=== PATIENT | female | born 1975 | race Caucasian/White ===

== ENCOUNTER 2022-04-12 21:52 | Emergency (ER) | payer OTHER, SELFPAY ==
[2022-04-12 22:06] VITALS: BP 180/99; PULSE 83; RESP 18; TEMP 36.6; O2SAT 98; BMI 38.0
[2022-04-12 22:46] LABS: MANUAL DIFF FLAG NO
[2022-04-12 22:47] LABS: Basophils Percent Auto 0.3 % (0-2); Eosinophils Absolute Auto 0.2 X10*3/uL (0.0-0.4); Eosinophils Percent Auto 2.1 % (0-4); Hematocrit 37.8 % (37.0-47.0); Hemoglobin 12.9 g/dl (12.0-16.0); Imm Gran Abs Auto 0.05 X10*3/uL (0.00-0.03); Imm Gran Pct Auto 0.5 % (0.0-0.4); Lymphocytes Percent Auto 29.7 % (20-40); Mean Corpuscular HGB Conc 34.1 g/dl (31.0-35.0); Mean Corpuscular Hemoglobin 30.5 pg (27.0-33.0); Mean Corpuscular Volume 89.4 fL (80.0-98.0); Mean Platelet Volume 8.8 fL (9.4-12.3); Monocytes Absolute Auto 0.5 X10*3/uL (0.1-1.2); Neutrophils Absolute Auto 6.2 x10*3/uL (2.0-8.3); Neutrophils Percent Auto 62.4 % (45-73); Platelet Count 219 X10*3/uL (160-400); Red Blood Count 4.23 X10*6/uL (4.20-5.50); Red Cell Distribution Width 12.1 % (11.0-16.0)
[2022-04-12 23:11] LABS: Alanine Aminotransferase 34 U/L (0-31); Albumin Level 3.9 g/dL (3.5-5.0); Alkaline Phosphatase 63 U/L (39-117); Anion Gap 17 (12-20); Aspartate Amino Transferase 26 U/L (5-31); Bilirubin Total 0.5 mg/dL (0.0-1.0); Blood Urea Nitrogen 9 mg/dL (9-16); Calcium 8.7 mg/dL (8.4-10.2); Carbon Dioxide 21 mmol/L (22-29); Chloride 105 mmol/L (96-108); Creatinine Clr Calc Pharmacy 128.9; Estimated Glomerular Filt Rate > 60; Glucose Random 142 mg/dL (60-115); Sodium 139 mmol/L (135-145); Total Protein 7.2 g/dL (6.5-8.0)
--- NOTE | 2022-04-13 00:40 | ECG_ITS ---
Test Reason : irrigular heart beat Blood Pressure : / mmHG Vent. Rate : 113 BPM Atrial Rate : 000 BPM P-R Int : 000 ms QRS Dur : 088 ms QT Int : 382 ms P-R-T Axes : 000 008 011 degrees QTc Int : 523 ms Atrial fibrillation with rapid ventricular response Prolonged QT Abnormal ECG No previous ECGs available Referred By: Jameel Moran Electronically Signed By:HARPAL LYMAN
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
[2022-04-13 00:51] LABS: Appearance Urine HAZY; Color Urine YELLOW; Glucose Urine UA Negative (NEG); Leukocyte Esterase Urine Negative (Negative); Nitrite Urine Negative (NEG); Specific Gravity - Urine >= 1.030 (1.005-1.025); Urine Blood Trace (NEG); Urine Ketones Negative (NEG); Urine Protein Negative (NEG-TRACE)
[2022-04-13 00:57] LABS: Bacteria Urine 2+ /LPF; Calcium Oxalate Crystals Urine 2+ /LPF; Mucus Urine 2+ /LPF; Squamous Epithelial Cell Urine 1+ /LPF
[2022-04-13] MEDS: Ibuprofen 600 MG TABLET PO (00:57)
[2022-04-13] MEDS: Cyclobenzaprine HCl 10 MG TABLET PO (00:58)
[2022-04-13 01:49] VITALS: BP 153/100; PULSE 99; RESP 16; TEMP 36.6; O2SAT 98
== END 2022-04-13 02:36 | disposition home or self-care (01) ==
PROVIDERS: Emergency Provider Emergency Medicine
DX: I48.91 Unspecified atrial fibrillation (principal); M54.50 Low back pain, unspecified; Z79.899 Other long term (current) drug therapy
CPT/HCPCS: 36415; 80053; 81001; 85025; 93005; 99283; 99284

== ENCOUNTER 2022-05-19 09:00 | Outpatient (RCR) | payer OTHER, SELFPAY ==
[2022-04-22 07:13] VITALS: BP 118/74; PULSE 83; O2SAT 97
== END 2022-06-28 12:36 | disposition home or self-care (01) ==
LOC: HO.PTWFD 09:00
PROVIDERS: Visit Provider Family Medicine
DX: M54.9 Dorsalgia, unspecified (principal)
CPT/HCPCS: 97110; 97140; 97161; 97535

== ENCOUNTER → 2022-07-28 14:53 | Outpatient (BNVA) | payer OTHER, SELFPAY | PROVIDERS: Visit Provider Nurse Practitioner Family | DX: I48.91 Unspecified atrial fibrillation (principal); G47.10 Hypersomnia, unspecified | CPT/HCPCS: 93005 ==

== ENCOUNTER → 2022-08-12 14:49 | Outpatient (REF) | payer OTHER, SELFPAY | LOC: HO.SL 14:49 | PROVIDERS: Visit Provider Nurse Practitioner Family | DX: G47.33 Obstructive sleep apnea (adult) (pediatric) (principal); G47.10 Hypersomnia, unspecified; I48.91 Unspecified atrial fibrillation | CPT/HCPCS: 95806 ==

== ENCOUNTER → 2022-08-25 13:56 | Outpatient (REF) | payer OTHER, SELFPAY ==
--- NOTE | 2022-08-25 14:01 | HM_ITS ---
* Total monitoring time about 3 days. * Underlying rhythm is sinus. * About 0.3% the time, rhythm is atrial fibrillation. * Atrial fibrillation with rapid ventricular rates noted as much as 159/Min. * Longest episode 3 minutes 36 seconds. * No significant pauses or AV blocks. * Rare PVCs. * No patient marker or diary. MTDD
--- NOTE | 2022-08-25 14:01 | CA_ITS ---
Transthoracic Echocardiogram Patient (Last, First, Middle): Kasandra Wesley A Gender: Female Date of : 1975 Age: 46 Procedure Date: 08/25/2022 Procedure Type: Transthoracic Echocardiogram Location: OP Height: 167.64 cm Weight: 117.94 kg BSA: 2.24 m2 Heart Rate: 77 bpm BP: 130 / 80 mmHg Flight Engineer Instructor: GLADIS Delgado MD: Ignacia Ramon [employer] Crm Developer: Anup Gunderson MD Symptoms: I48.91 - Unspecified atrial fibrillation Study Quality: Poor/Contrast ECG Rhythm: Sinus Conclusions: - 1. Technically limited study despite use of contrast agent 2. Normal LV systolic function with pseudonormal filling pattern 3. Normal cardiac valvular Dopplers 4. Normal RV systolic pressure Findings Procedure Information Contrast agent, definity, is being given per protocol without apparent complications. Left Ventricle Normal left ventricular size, thickness, and systolic function. The visually estimated ejection fraction is between 60-65%. Spectral Doppler is indicative of a pseudonormal filling pattern. Right Ventricle There is normal right ventricular systolic function. Atria The left atrium is likely dilated. Interatrial shunt cannot be excluded. The right atrium was not well visualized. Aortic Valve The aortic valve structure and function is likely normal. There is no aortic valve stenosis. There is no aortic valve regurgitation. Mitral Valve Likely normal mitral valve structure and function. There is no mitral valve regurgitation. There is no mitral valve stenosis. Pulmonic Valve The pulmonic valve was not well visualized. Tricuspid Valve The tricuspid valve was not well visualized. There is trace tricuspid valve regurgitation. The right ventricular systolic pressure is normal. The right ventricular systolic pressure is 20 mmHg. Normal right atrial pressure. There is no evidence of pulmonary hypertension. Great Vessels All visible segments of the aorta are normal in size. The pulmonary artery was not well visualized. Venous The inferior vena cava is normal in size and collapses greater than 50% with inspiration. Pericardium/Pleural The pericardium was not well visualized. Prior Study Comparison No prior study available for comparison. Measurements 2D Linear Measurements IVSd: 0.90 0.6-0.9/0.6-1.0 cm LVIDd: 4.98 3.9-5.3/4.2-5.9 cm LVIDd Index: 2.22 2.4-3.2/2.2-3.1 cm/m2 LVIDs: 2.95 2.0-3.6 cm LVPWd: 0.92 0.7-1.1 cm LA Diam: 4.30 2.7-3.8/3.0-4.0 cm LAIDs Index: 1.92 1.5-2.3 cm/m2 LV Mass: 197.55 67-162/88-224 g LV Mass Index: 88.19 43-95/49-115 g/m2 LVOT Diam: 2.00 3.0+(-)1.3 cm 2D Systolic Function EF 4C: 64.70 >55% EF 2C: 60.20 >55% EF BiP: 62.90 >55% Mitral Valve MV Pk E: 0.98 MV PK A: 0.88 MV Decel Time: 217.00 E/A: 1.10 E'Lateral: 10.90 E'Medial: 8.16 E/E' Med: 12.00 E/E' Lat: 9.00 PHT: 64.00 MVA PHT: 3.44 Decel [place]: 4.50 Aortic Valve AoV Pk Rajiv: 1.85 AoV Mn Rajiv: 1.33 AoV VTI: 0.41 AoV Pk Grad: 14.00 Aov Mn Grad: 8.00 BETH Cont.VTI: 1.97 LVOT LVOT Pk Rajiv: 1.07 LVOT Mn Rajiv: 0.81 LVOT VTI: 0.26 LVOT Pk Grad: 5.00 LVOT Mn Grad: 3.00 LVOT Diam: 2.00 LVOT Area: 3.14 Diastolic Function MV Pk E: 0.98 MV Pk A: 0.88 E/A: 1.10 E'Medial: 8.16 E/E' Med: 12.00 E' Laterial: 10.90 E/E' Lat: 9.00 Right Ventricle TAPSE (mm): 30.50 TVS' Rajiv: 11.40 Tricuspid Valve TR Pk Rajiv: 2.06 TR Pk Grad: 17.00 RA Press: 3.00 RVSP: 20.00 Great Vessels Aorta Sinus of Valsalva: 3.00 2.0-3.5 cm Ao Asc: 3.60 2.1-3.4 cm Pulmonary Valve PV Pk Rajiv: 0.98 Peak PV Grad: 4.00 Updated in Other Vendor System with Status of Final Anup Gunderson MD electronically signed on 08/26/2022 1:10:34 PM with status of Final
== END ==
LOC: HO.CARD 13:56
PROVIDERS: Visit Provider Nurse Practitioner Family
DX: I48.91 Unspecified atrial fibrillation (principal)
CPT/HCPCS: 93242; 93306; Q9957

== ENCOUNTER 2022-09-13 09:00 | Outpatient (RCR) | payer OTHER, SELFPAY ==
--- NOTE | 2022-08-02 15:28 | MHC.PT.EP ---
[facility] [place] Office [place] Office [place] Office [address] Treasure Foote [address] [phone] F: [phone] F: [phone] F: [phone] F: [phone] Physical Therapy Plan of Care Date of Evaluation: Date of Surgery: Diagnosis: Dorsalgia Assessment: Pt is a 46 y/o female referred to PT for eval and treat of dorsalgia resulting in decreased tolerance for standing long duration, performing heavy HH chores, walking long distances, rolling in bed as well as getting in and out of her shower secondary to decreased core and hip strength, increased lumbar tissue tension, decreased trunk ROM, L LE sciatica Sx, and pain. Pt is deemed an appropriate candidate to receive skilled PT services to address their physical impairments in order to improve their functional ability. Frequency and Duration: The patient will be seen 2 x/ wk x 4 wks. Short Term Goals: Initiate HEP. Improve baseline pain form 5/5 to < 3/10. Senior Living Goals: I with HEP. Pt will report I can stand as long as i'd like though it increases my pain; initial: < 1 hour. Pt will no longer be panful rolling in bed. Pt will report i done change the way I wash or dress myself though is causes me pain; initial: Washing and dressing increases my pain and I find it necessary to change the way I do it. Treatment Plan: Modalities to reduce pain, spasms and effusion. Manual therapy to restore motion and function. Therapeutic exercise to improve strength and flexibility. Neuromuscular re-education for posture and balance. Therapeutic activities to return to functional activities of daily living. Electronically signed by: Farhat Escamilla PT. Please sign and return to therapist. Thank you for your referral.
--- NOTE | 2022-10-20 16:05 | MHC.PT.DC ---
[facility] [place] Office [place] Office [place] Office [address] Treasure Foote [address] [phone] F: [phone] F: [phone] F: [phone] F: [phone] Physical Therapy Discharge Report Diagnosis: Dorsalgia Date of Surgery: Date of Evaluation: 08/02/22 Date of Discharge: 10/20/22 Treatments to Date: 11 Cancellations to Date: No Shows to Date: Discharge Status: Improved Function Independent with HEP Recommend MD Follow-up Discharge Summary: Pt did not attend her last visit for final assessment however she did attend therapy with good clinic participation and poor home program compliance. From last treatment note: Pt reports she persists with LBP rolling in bed, has been doing her HEP in the AM and feels OK with it. Pt filled out MANJU which demonstrates improvement of only 4 points which is not a significant improvement. 2 visits anticipated to DC; Pt in agreement. Electronically signed by: Farhat Escamilla PT. Please sign and return to therapist. Thank you for your referral.
== END 2022-10-20 16:04 | disposition home or self-care (01) ==
LOC: HO.PTCHIC 09:00
PROVIDERS: Visit Provider Family Medicine
DX: M54.9 Dorsalgia, unspecified (principal); M25.511 Pain in right shoulder; M25.572 Pain in left ankle and joints of left foot
CPT/HCPCS: 97110; 97140; 97161

== ENCOUNTER → 2022-10-08 20:30 | Outpatient (REF) | payer OTHER, SELFPAY | LOC: HO.SL 20:30 | PROVIDERS: Visit Provider Nurse Practitioner Family | DX: Z13.89 Encounter for screening for other disorder (principal) ==

== ENCOUNTER → 2022-11-16 15:13 | Outpatient (BNVA) | payer OTHER, SELFPAY | PROVIDERS: Visit Provider Nurse Practitioner Family | DX: I48.0 Paroxysmal atrial fibrillation (principal); G47.33 Obstructive sleep apnea (adult) (pediatric); G47.34 Idiopathic sleep related nonobstructive alveolar hypoventilation; Z79.899 Other long term (current) drug therapy | CPT/HCPCS: 99212 ==

== ENCOUNTER → 2022-11-29 14:33 | Outpatient (BNVA) | payer OTHER, SELFPAY | PROVIDERS: Visit Provider Internal Medicine | DX: G47.33 Obstructive sleep apnea (adult) (pediatric) (principal); E66.01 Morbid (severe) obesity due to excess calories; Z68.41 Body mass index [BMI] 40.0-44.9, adult | CPT/HCPCS: 99202 ==

== ENCOUNTER → 2023-05-04 09:03 | Outpatient (REF) | payer OTHER, SELFPAY ==
--- NOTE | 2023-05-04 09:06 | HM_ITS ---
Conclusion: 1. Patient was monitored for total period of 2 days and 58 minutes 2. Baseline was normal sinus rhythm with average heart of 87 beats per minute 3. Intermittent episodes of atrial fibrillation noted with total burden of about 12% with longest episode lasting 2 hours and 22 minutes with the fastest heart of 197 beats per minute during atrial fibrillation 3. Frequent PACs noted 4. No significant pauses noted 5. Patient reported 1 symptom on the diary with double heartbeat correlating with atrial fibrillation MTDD
== END ==
LOC: HO.CARD 09:03
PROVIDERS: Visit Provider Nurse Practitioner Family
DX: I48.0 Paroxysmal atrial fibrillation (principal); G47.33 Obstructive sleep apnea (adult) (pediatric)
CPT/HCPCS: 93225

== ENCOUNTER → 2023-05-04 09:06 | Outpatient (BNV) | payer OTHER, SELFPAY | PROVIDERS: Visit Provider Internal Medicine Cardiovascular Disease | DX: I48.0 Paroxysmal atrial fibrillation (principal) | CPT/HCPCS: 93227 ==

== ENCOUNTER 2023-05-10 13:03 | Outpatient (AMB) | payer OTHER, SELFPAY ==
[2023-05-10 13:07] VITALS: BP 134/82; BMI 41.5
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
== END 2023-05-10 13:44 | disposition home or self-care (01) ==
PROVIDERS: Visit Provider Nurse Practitioner Family
DX: I48.0 Paroxysmal atrial fibrillation (principal); G47.33 Obstructive sleep apnea (adult) (pediatric); G47.34 Idiopathic sleep related nonobstructive alveolar hypoventilation
CPT/HCPCS: 99213

== ENCOUNTER → 2023-05-10 13:03 | Outpatient (BNVA) | payer OTHER, SELFPAY | PROVIDERS: Visit Provider Nurse Practitioner Family | DX: I48.0 Paroxysmal atrial fibrillation (principal); G47.33 Obstructive sleep apnea (adult) (pediatric); G47.34 Idiopathic sleep related nonobstructive alveolar hypoventilation; Z79.899 Other long term (current) drug therapy | CPT/HCPCS: 99212 ==

== ENCOUNTER → 2023-11-03 08:24 | Outpatient (REF) | payer OTHER, SELFPAY ==
--- NOTE | ~2023-11-03 | NM_ITS ---
Exercise Myocardial perfusion study Indication: Paroxysmal atrial fibrillation Technique: The patient was brought in for an exercise perfusion study on 11/03/2023. Patient performed exercise as per Anil protocol and was injected 40 mCi of sestamibi was given intravenously one target HR was achieved. Images were obtained using the SPECT gamma camera interlaced with the gating device. Images were obtained in supine position. Resting perfusion study could not be performed as patient did not schedule her appointment. Images were obtained with and without CT attenuation. Total DLP 93 mGy-cm. Images were processed with the software and compared side to side in short axis, horizontal long axis and vertical long axis views. Findings: The stress perfusion study showed non attenuated images show mildly reduced uptake in the anterior and distal anterolateral wall of the LV myocardium. Remainder of the LV myocardium is normally perfused. Attenuation corrected images show mildly reduced uptake in the apex of the LV myocardium.. The gated study shows normal LV systolic function with calculated LVEF of 70%. LV cavity is normal in size. The gated study shows normal systolic wall thickening and contraction of all segments. There is no assessment of transient ischemic dilation. Resting study as patient did not schedule an appointment. The findings are consistent with there is suggestion also attenuation artifact of the anterior wall. There however is apical defect on attenuated corrected images. There is normal contraction pattern and ischemia cannot be entirely ruled out without resting perfusion study.. NM/NM cardiolite stress test Impression: 1. Mild intensity apical defect of unclear significance, ischemia cannot be entirely ruled out 2. Gated LVEF is 70 3. Transient ischemic dilatation not assessed Stress EKG is negative for ischemia at workload achieved
--- NOTE | 2023-11-03 08:26 | CA_ITS ---
Acquisition Time: 2023-11-03 08:38:18 Total Exercise Time: 00:05:59 Test Indications: Palpitations Medications: See H Protocol: KELI Max HR: 153 BPM 88% of Pred: 173 BPM Max BP: 154/088 mmHG Max Work Load: 7.0 METS Exercise stress test exercise 5 min 59 sec of Keli protocol achieving 88% MPHR, with mild SOB, no chest discomfort, without arrhythmias seen through artifact, without EKG changes. Nuclear images pending. Test reviewed with Dr. Briones. Referred By: Ignacia Ramon Overread By: Stephie Rivas
== END ==
LOC: HO.CARD 08:24
PROVIDERS: Visit Provider Nurse Practitioner Family
DX: I48.0 Paroxysmal atrial fibrillation (principal); E66.01 Morbid (severe) obesity due to excess calories
CPT/HCPCS: 78452; 93017; A9500

== ENCOUNTER → 2023-11-03 08:26 | Outpatient (BNV) | payer OTHER, SELFPAY | PROVIDERS: Visit Provider Nurse Practitioner | DX: I48.0 Paroxysmal atrial fibrillation (principal) | CPT/HCPCS: 78451; 93016; 93018 ==

== ENCOUNTER 2023-11-10 12:54 | Outpatient (AMB) | payer OTHER, SELFPAY ==
[2023-11-10 12:57] VITALS: BP 160/70; PULSE 71; BMI 43.1
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
== END 2023-11-10 13:42 | disposition home or self-care (01) ==
PROVIDERS: Visit Provider Nurse Practitioner Family
DX: I48.0 Paroxysmal atrial fibrillation (principal); G47.33 Obstructive sleep apnea (adult) (pediatric); G47.34 Idiopathic sleep related nonobstructive alveolar hypoventilation; R03.0 Elevated blood-pressure reading, without diagnosis of hypertension; E66.01 Morbid (severe) obesity due to excess calories
CPT/HCPCS: 93010; 99214

== ENCOUNTER → 2023-11-10 12:54 | Outpatient (BNVA) | payer OTHER, SELFPAY | PROVIDERS: Visit Provider Nurse Practitioner Family | DX: I48.0 Paroxysmal atrial fibrillation (principal); E66.01 Morbid (severe) obesity due to excess calories; G47.33 Obstructive sleep apnea (adult) (pediatric); G47.34 Idiopathic sleep related nonobstructive alveolar hypoventilation; R03.0 Elevated blood-pressure reading, without diagnosis of hypertension; Z99.89 Dependence on other enabling machines and devices; Z79.899 Other long term (current) drug therapy | CPT/HCPCS: 93005; 99212 ==

== ENCOUNTER → 2024-06-04 09:29 | Outpatient (REF) | payer OTHER, SELFPAY ==
--- NOTE | 2024-06-04 09:34 | HM_ITS ---
* Total monitoring time 3 days. * Underlying rhythm is sinus with an average rate of 70/Min. * Occasional supraventricular ectopy with a burden of 1.2%. * Rare ventricular ectopy. One run of 5 beats at 109/min during sleep hours. * No significant pauses or high-grade AV blocks. * No patient markers or diary events. MTDD
== END ==
LOC: HO.CARD 09:29
PROVIDERS: Visit Provider Nurse Practitioner Family
DX: I48.0 Paroxysmal atrial fibrillation (principal)
CPT/HCPCS: 93242

== ENCOUNTER → 2024-06-04 09:34 | Outpatient (BNV) | payer OTHER, SELFPAY | PROVIDERS: Visit Provider Internal Medicine | DX: I47.10 Supraventricular tachycardia, unspecified (principal) | CPT/HCPCS: 93244 ==

== ENCOUNTER 2024-08-13 14:29 | Outpatient (AMB) | payer OTHER, SELFPAY ==
[2024-08-13 14:32] VITALS: BP 122/74; PULSE 76; BMI 42.0
--- NOTE | 2024-08-13 14:32 | MHC.OFFVIS ---
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 Today she reports that she has been doing well since her last visit here in October. She has a fit that which tells her if she is in atrial fibrillation. She believes her last episode was April 2024. She has been drinking pre workout drinks, that her son gave her, and now believes this has lessened her palpitations, AFib and given her more energy. She denies palpitations, no lightheadedness, presyncope, syncope. No shortness of breath, PND, orthopnea or edema. No chest discomfort at rest or with activity. She was previously scheduled for a CTA of the coronary arteries and says she was never called for an appointment at [facility]. She has been taking her meds as directed. She drinks 1 caffeinated beverage a day. She describes herself as very active. Son is present. [facility] Medical History Morbid obesity Paroxysmal A-fib Nocturnal hypoxemia Obstructive sleep apnea delivery delivered Family History Mother Hypertension Social History Alcohol intake: never Patient Tobacco Use Status: Never used Tobacco Review of Systems Const All systems reviewed & are unremarkable except as noted in HPI and below ENT Denies dizziness Card Denies chest pain, Denies chest pain at rest, Denies chest pain with activity, Denies rapid heart rate, Denies pedal edema, Denies edema, Denies leg edema, Denies lightheadedness, Denies palpitations, Denies dyspnea, Denies dyspnea on exertion and Denies orthopnea Resp Denies cough, Denies dyspnea and Denies dyspnea on exertion GI Denies hematochezia and Denies change in stool character Musc Denies abnormal gait, Denies limited range of motion, Denies muscle cramps, Denies muscle weakness, Denies numbness, Denies radiating pain into limb, Denies stiffness and Denies tingling Neuro Denies abnormal gait, Denies dizziness, Denies numbness and Denies tingling Endo Denies palpitations Physical Exam Vital Signs: Last Vital Signs Pulse 76 08/13/24 14:32 BP 122/74 08/13/24 14:32 BMI result Body Mass Index 42.0 Const General: cooperative, healthy appearing, comfortable and no acute distress Orientation/consciousness: patient oriented x3 Neck Neck: Yes normal visual inspection and Yes no JVD Carotids: normal carotid upstroke Chest Chest palpation & inspection: normal inspection of the chest Resp Effort & Inspection: normal respiratory effort Auscultation: clear to auscultation bilaterally, no crackles, no rales, no rhonchi and no wheezes Cardio Jugular venous distension: no JVD Rate: regular rate Rhythm: regular rhythm Heart sounds: S1 normal heart sound present, S2 normal heart sound present, no murmurs and no rubs Neuro General: patient oriented x3 Extrem General: Yes normal to inspection and No no pedal edema Psych Appearance: grossly normal Mental Status: mental status grossly normal Speech and movement: Normal speech and movement present Assessment & Plan Assessment & Plan (1) Paroxysmal A-fib: Code(s): I48.0 - Paroxysmal atrial fibrillation Category: Medical Plan: History of paroxysmal atrial fibrillation, since 03/2022. Chads Vasc score of 1, female. She was not put on anticoagulation. She was started on metoprolol for heart rate control. Echocardiogram done 08/25/2022 showed EF 60-65%, normal valves, normal RV, left atrium likely dilated, right atrium not well visualized. She had a sleep study done on 08/31/2022 showing severe obstructive sleep apnea, hypoxemia, CPAP has since been started. A Holter monitor was done on, 05/04/2023 for 3 days showing sinus rhythm with average heart rate 87, AFib occurring 12% of the time with longest episode 2 hours 22 minutes with frequent PACs. She reported she was not taking her metoprolol at that time. She was restarted on 50 mg daily. She continued to have reports of heart palpitations and her dose was further increased to 75 mg daily. A Holter monitor was done on 06/04/2024 for 3 days showing sinus rhythm with average heart rate 70, SVE 1.2% of time, rare ventricular ectopy, one 5 beat NSVT during sleep. Today she reports she has been doing well with no recent heart palpitations. She believes her last episode of AFib was in April. She is drinking pre workout drinks and feels this is helping her. Informed her that if she notices increasing heart palpitations she should stop. She continues to drink 1 caffeinated beverage per day. She continues to be a CHADS-VASc 1. Continue metoprolol. Cardiology office visit in 6 months, sooner if needed. (2) Obstructive sleep apnea: Code(s): G47.33 - Obstructive sleep apnea (adult) (pediatric) Category: Medical Plan: Home sleep study confirms severe obstructive sleep apnea with hypoxemia. Has been evaluated by pulmonology and is now wearing CPAP mask. She does report compliance and is more awake in daytime. (3) Nocturnal hypoxemia: Code(s): G47.34 - Idiopathic sleep related nonobstructive alveolar hypoventilation Category: Medical Plan: As above (4) Abnormal nuclear stress test: Code(s): R94.39 - Abnormal result of other cardiovascular function study Category: Medical Plan: A nuclear stress test was done on 12/06/2023 as part of cardiac evaluation. It did show mild intensity apical defect, ischemia can not be ruled out. A CTA of the coronary arteries was ordered months ago however not completed as of yet. She tells me it was initially scheduled at and they do not take her insurance. It was then to be scheduled at [facility] and she never received a call. At this time I will notify our activated sludge operator to try to reschedule this test at [facility]. She has no reports of anginal sounding symptoms. Is possible her test is false positive. (5) Elevated BP without diagnosis of hypertension: Code(s): R03.0 - Elevated blood-pressure reading, without diagnosis of hypertension Category: Medical Plan: She has had a few elevated blood pressure readings in the past. She has no diagnosis of hypertension which would then give her CHADS-VASc 2. Blood pressure 122/74 today. Continue to follow. Plan Time spent on chart review, documentation, interview and assessment Coding Level of Care Code Est Pt Level 4 (27271) Complex EM visit Add On G2211 Diagnoses Paroxysmal A-fib I48.0 Obstructive sleep apnea G47.33 Nocturnal hypoxemia G47.34 Abnormal nuclear stress test R94.39 Elevated BP without diagnosis of hypertension R03.0 Time Spent (min) 32
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
== END 2024-08-13 15:08 | disposition home or self-care (01) ==
PROVIDERS: Visit Provider Nurse Practitioner Family
DX: I48.0 Paroxysmal atrial fibrillation (principal); G47.33 Obstructive sleep apnea (adult) (pediatric); G47.34 Idiopathic sleep related nonobstructive alveolar hypoventilation; R94.39 Abnormal result of other cardiovascular function study; R03.0 Elevated blood-pressure reading, without diagnosis of hypertension
CPT/HCPCS: 99214; G2211

== ENCOUNTER → 2024-08-13 14:29 | Outpatient (BNVA) | payer OTHER, SELFPAY | PROVIDERS: Visit Provider Nurse Practitioner Family | DX: I48.0 Paroxysmal atrial fibrillation (principal); G47.33 Obstructive sleep apnea (adult) (pediatric); G47.34 Idiopathic sleep related nonobstructive alveolar hypoventilation; E66.9 Obesity, unspecified; R94.39 Abnormal result of other cardiovascular function study; R03.0 Elevated blood-pressure reading, without diagnosis of hypertension; Z68.41 Body mass index [BMI] 40.0-44.9, adult; Z99.89 Dependence on other enabling machines and devices | CPT/HCPCS: 99212 ==

== ENCOUNTER 2025-02-14 09:11 | Outpatient (AMB) | payer OTHER, SELFPAY ==
--- NOTE | 2025-02-14 09:13 | A.OFFVIS_ITS ---
Vital Signs 02/14/25 09:16 Height 5 ft 8 in Weight 285 lb 11.505 oz BMI 43.4 BP 120/64 Blood Pressure Location Lt brachial Position Sitting Pulse 68 Pulse Source Monitor Intake Visit Reasons: 6 mth f/up Intake Note: 6 mth f/up Care Transition Mgr Required: No Accompanied by: Self / Same As Patient Allergies No Known Allergies Allergy (Verified 08/13/24 14:33) Medication List - Last Reconciled 02/14/25 by Ignacia Ramon NP-C metoprolol succinate ER 75 mg (1.5 x 50 mg) PO DAILY 90 days HPI HPI 6 mth f/up: Details: Kasandra is a 49-year-old female past medical history of obesity, paroxysmal atrial fibrillation, severe obstructive sleep apnea, CPAP use, abnormal nuclear stress test followed by normal CT of the coronary a sooner presents for follow- up. Today she reports that she has been doing well since her last visit in July. She reports 1 episode of atrial fibrillation that occurred when she was not wearing CPAP for a few days. Her has been in the hospital and her sleep patterns were disrupted. The AFib occurred at night and was recorded on her fit bit, it was asymptomatic. Besides this episode she has been very consistent with her CPAP. Overall she feels well with no concerning symptoms. She is drinking pre workout drinks and believes it gives her more energy and mental clarity. She denies palpitations, no lightheadedness, presyncope, syncope. No shortness of breath, PND, orthopnea or edema. No chest discomfort at rest or with activity. She is trying to work on weight loss. She has been taking her meds as directed. No new health diagnoses. She drinks 1 caffeinated beverage a day. [facility] Medical History Morbid obesity Paroxysmal A-fib Nocturnal hypoxemia Obstructive sleep apnea delivery delivered Family History Mother Hypertension Social History Alcohol intake: never Patient Tobacco Use Status: Never used Tobacco Review of Systems Const All systems reviewed & are unremarkable except as noted in HPI and below Denies chills, Denies fatigue, Denies fever(s), Denies frequent falls, Denies weakness, Denies weight gain and Denies weight loss ENT Denies dizziness Card Denies chest pain, Denies leg edema, Denies lightheadedness, Denies palpitations, Denies dyspnea and Denies dyspnea on exertion Resp Denies cough, Denies dyspnea and Denies dyspnea on exertion GI Denies hematochezia Musc Denies abnormal gait, Denies muscle weakness, Denies numbness, Denies radiating pain into limb and Denies tingling Neuro Denies abnormal gait, Denies dizziness, Denies frequent falls, Denies numbness, Denies tingling and Denies weakness Endo Denies fatigue and Denies palpitations Physical Exam Vital Signs: Last Vital Signs Pulse 68 02/14/25 09:16 BP 120/64 02/14/25 09:16 BMI result Body Mass Index 43.4 Const General: cooperative, healthy appearing, comfortable and no acute distress Orientation/consciousness: patient oriented x3 Neck Neck: Yes normal visual inspection and Yes no JVD Resp Effort & Inspection: normal respiratory effort Auscultation: clear to auscultation bilaterally, no crackles, no rales, no rhonchi and no wheezes Cardio Rate: regular rate Rhythm: regular rhythm Heart sounds: S1 normal heart sound present, S2 normal heart sound present, no gallops, no murmurs and no rubs Neuro General: patient oriented x3 Extrem General: Yes normal to inspection, No no pedal edema and No calf tenderness Psych Appearance: grossly normal Mental Status: mental status grossly normal Speech and movement: Normal speech and movement present Office Procedures EKG Details: Today read by me, normal sinus rhythm, rate 68, QTC 455 millisecond [id number], Complete Assessment & Plan Assessment & Plan (1) Paroxysmal A-fib: Code(s): I48.0 - Paroxysmal atrial fibrillation Category: Medical Plan: History of paroxysmal atrial fibrillation, since 03/2022. Chads Vasc score of 1, female. She was not put on anticoagulation. She was started on metoprolol for heart rate control. Echocardiogram done 08/25/2022 showed EF 60-65%, normal valves, normal RV, left atrium likely dilated, right atrium not well visualized. She had a sleep study done on 08/31/2022 showing severe obstructive sleep apnea, hypoxemia, CPAP has since been started. Last Holter monitor was done on 06/04/2024 for 3 days showing sinus rhythm with average heart rate 70, SVE 1.2% of time, rare ventricular ectopy, one 5 beat NSVT during sleep. She is currently on metoprolol XL 75 mg daily. EKG today shows normal sinus rhythm, rate 68. Rare episodes of atrial fibrillation reported. We did discuss ablation and she is not interested at this time. Continue current med management. Anticoagulation indicated if CHADS-VASc score is greater than 1. Recommended reduction in energy drinks/caffeinated beverages. Cardiology follow-up 1 year, sooner if needed. (2) Obstructive sleep apnea: Code(s): G47.33 - Obstructive sleep apnea (adult) (pediatric) Category: Medical Plan: Home sleep study confirms severe obstructive sleep apnea with hypoxemia. Has been evaluated by pulmonology and is now wearing CPAP mask. She does report compliance and is more awake in daytime. (3) Nocturnal hypoxemia: Code(s): G47.34 - Idiopathic sleep related nonobstructive alveolar hypoventilation Category: Medical Plan: As above (4) Abnormal nuclear stress test: Code(s): R94.39 - Abnormal result of other cardiovascular function study Category: Medical Plan: A nuclear stress test was done on 12/06/2023 as part of cardiac evaluation. It did show mild intensity apical defect, ischemia can not be ruled out. A CTA of the coronary arteries done on 10/31/2024 shows no coronary artery disease, evidence of pulmonary artery hypertension. -this finding is likely related to her obstructive sleep apnea. Test results reviewed with her in detail. Nuclear stress test was false positive. (5) Elevated BP without diagnosis of hypertension: Code(s): R03.0 - Elevated blood-pressure reading, without diagnosis of hypertension Category: Medical Plan: Blood pressure goal less than 130/80. Normal range today. She has not had elevated readings in the past but no diagnosis of hypertension. She is diagnosed with hypertension then she would be CHADS-VASc 2 and anticoagulation for AF would be indicated. Continue to follow. Plan I discussed with the patient the importance of continuing metoprolol for atrial fibrillation management and explained that anticoagulation is not necessary at this time due to her CHADSVASc score. We reviewed the benefits of consistent CPAP use for her sleep apnea and its potential impact on reducing pulmonary artery hypertension. I advised weight loss as a strategy to improve her sleep apnea and overall cardiovascular health. A follow-up appointment is scheduled for one year, with instructions to return sooner if her atrial fibrillation episodes increase in frequency or if new symptoms develop. Patient Instructions: - Continue taking metoprolol 75 mg daily. - Use CPAP machine every night. - Aim for weight loss to help with sleep apnea. - Schedule a follow-up in one year or sooner if symptoms worsen. Patient was informed and verbally consented to the use of an ambient scribe for clinic note documentation during this visit. Visit time spent on chart review, interview, assessment, orders, documentation. Coding Level of Care Code Est Pt Level 4 (97958) Complex EM visit Add On G2211 Diagnoses Paroxysmal A-fib I48.0 Obstructive sleep apnea G47.33 Nocturnal hypoxemia G47.34 Abnormal nuclear stress test R94.39 Elevated BP without diagnosis of hypertension R03.0 CPT Codes EKG - CPT: 63870-[id number], Complete ([id number]) Time Spent (min) 28
[2025-02-14 09:16] VITALS: BP 120/64; PULSE 68; BMI 43.4
--- OUTSIDE RECORDS SUMMARY | 2025-02-14 09:48 | XMS_ITS ---
Author Name [facility] Organization Unknown Care Team Organization Name Specialty Phone Email Start Date End [facility]20[email or web address]
== END 2025-02-14 09:43 | disposition home or self-care (01) ==
LOC: HO.HCS 09:12
PROVIDERS: Visit Provider Nurse Practitioner Family
DX: I48.0 Paroxysmal atrial fibrillation (principal); G47.33 Obstructive sleep apnea (adult) (pediatric); G47.34 Idiopathic sleep related nonobstructive alveolar hypoventilation; R94.39 Abnormal result of other cardiovascular function study; R03.0 Elevated blood-pressure reading, without diagnosis of hypertension
CPT/HCPCS: 93010; 99214; G2211

== ENCOUNTER → 2025-02-14 09:11 | Outpatient (BNVA) | payer OTHER, SELFPAY | PROVIDERS: Visit Provider Nurse Practitioner Family | DX: I48.0 Paroxysmal atrial fibrillation (principal); G47.33 Obstructive sleep apnea (adult) (pediatric); G47.34 Idiopathic sleep related nonobstructive alveolar hypoventilation; R94.39 Abnormal result of other cardiovascular function study; E03.0 Congenital hypothyroidism with diffuse goiter; E66.01 Morbid (severe) obesity due to excess calories; Z68.41 Body mass index [BMI] 40.0-44.9, adult; Z99.89 Dependence on other enabling machines and devices | CPT/HCPCS: 93005; 99212 ==